=== PATIENT | female | born 1950 | race Caucasian/White ===

== ENCOUNTER → 2016-06-12 | Outpatient (CLI) | payer BC, MEDICARE ==
[~2016-06-12] MED LIST: ASPIRIN81 M1 PO; ATIVAN0.5 MG PO; CERTAGEN PO; COMBIVENT INH14.7 GM INH; CRESTOR5 MG PO; LASIX20 MG PO; LOTENSIN20 MG PO; URSODIOL500 MG PO; VICODIN 5/1 TAB 5/50 PO
[2016-06-12 09:54] LABS: HEMATOCRIT 44.4 % (35.0-45.0); HEMOGLOBIN 14.7 gm/dL (12.0-16.0); MEAN CELL VOLUME 88.5 FL (83-96); MEAN CORPUSCULAR HEMOGLOBIN 29.2 PG (28-34); MEAN PLATELET VOLUME 7.4 FL (6.5-11.5); RED BLOOD COUNT 5.02 X10e (3.90-5.30); RED CELL DISTRIBUTION WIDTH 13.9 % (11.0-15.5)
[2016-06-12 10:46] LABS: BILIRUBIN, DIRECT 0.1 mg/dL (0.0-0.2); CREATININE SERUM 0.4 mg/dL (0.6-1.4); GLOM FILT RATE Estimated 109.3 mL/min (>60)
[2016-06-12 10:52] LABS: POTASSIUM 4.1 mmol/L (3.5-5.1)
[2016-06-12 10:53] LABS: ALBUMIN SERUM 4.3 g/dL (3.5-5.0); BILIRUBIN,INDIRECT 0.3 mg/dL (0.0-0.9); BILIRUBIN,TOTAL 0.4 mg/dL (0.2-2.0); CALCIUM SERUM 9.9 mg/dL (8.4-10.2); PROTEIN TOTAL SERUM 7.5 g/dL (6.0-8.3)
== END | disposition home or self-care (01) ==
LOC: CLAB 08:53
PROVIDERS: Internal Medicine
DX: K75.81 Nonalcoholic steatohepatitis (NASH) (principal); I10 Essential (primary) hypertension; E78.5 Hyperlipidemia, unspecified; E11.9 Type 2 diabetes mellitus without complications
CPT/HCPCS: 36415; 80048; 80061; 80076; 83036; 85027

== ENCOUNTER → 2016-06-12 | Outpatient (CLI) | payer BC, MEDICARE ==
[2016-06-12 09:54] LABS: BASOPHIL% 0.8 % (0-2.5); EOSINOPHIL# 0.2 X10e3 (0-0.7); EOSINOPHIL% 3.4 % (0.0-7.0); HEMATOCRIT 44.9 % (35.0-45.0); HEMOGLOBIN 14.6 gm/dL (12.0-16.0); LYMPHOCYTE% 33.2 % (17.0-45.0); MEAN CELL VOLUME 88.7 FL (83-96); MEAN CORPUSCULAR HEMOGLOBIN 28.9 PG (28-34); MEAN CORPUSCULAR HGB CONC 32.5 g/dL (30-36); MEAN PLATELET VOLUME 7.3 FL (6.5-11.5); MONOCYTE# 0.4 X10e3 (0-1.0); NEUTROPHIL# 3.4 X10e3 (1.5-7.1); NEUTROPHIL% 56.6 % (40-75); PLATELET COUNT 225 X10e3 (140-420); RED BLOOD COUNT 5.06 X10e (3.90-5.30); RED CELL DISTRIBUTION WIDTH 13.8 % (11.0-15.5); WHITE BLOOD COUNT 5.9 X10e3 (4.0-10.5)
[2016-06-12 09:58] LABS: DIFF IND NO
[2016-06-12 10:42] LABS: ALBUMIN SERUM 4.3 g/dL (3.5-5.0); BILIRUBIN,TOTAL 0.4 mg/dL (0.2-2.0); CALCIUM SERUM 9.9 mg/dL (8.4-10.2); CREATININE SERUM 0.4 mg/dL (0.6-1.4); GLOM FILT RATE Estimated 109.3 mL/min (>60); POTASSIUM 4.1 mmol/L (3.5-5.1); PROTEIN TOTAL SERUM 7.5 g/dL (6.0-8.3)
== END | disposition home or self-care (01) ==
LOC: CLAB 08:46
PROVIDERS: Internal Medicine Gastroenterology
DX: K75.81 Nonalcoholic steatohepatitis (NASH) (principal)
CPT/HCPCS: 80053; 82105; 82239; 85025